=== PATIENT | female | born 1980 | race African-American/Black ===

== ENCOUNTER 2016-11-07 07:24 | Emergency (ER) | payer OTHER ==
[~2016-11-07] VITALS: Ht 152.4 cm; Wt 100.0 kg
[~2016-11-07 07:24] MED LIST: ADVA100A INH; ALBU1.25 NEB; SYMB80AE INH
[2016-11-07 07:26] VITALS: BP 165/94; PULSE 112; RESP 22; TEMP 98.2; O2SAT 95
--- NOTE | 2016-11-07 07:43 | PD ---
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 Patient does have a history of asthma and does use nebulizers at home. She states that she use them however they have not controlled her wheezing. She denies any chest pain chest pressure. Patient also noted that there is some blood that was leaking around her drainage tube from her thyroidectomy. She states she was not sure of this was normal and not. There is no redness or pus. She denies any fevers. PFSH Past Medical History Asthma: Yes Diminished Hearing: No Respiratory: Yes Integumentary: Yes (HIDRANITIS SUPPURATIVA) Myocardial Infarction: Yes Thyroid Disease: Yes (GOITER) : 2 Para: 1 : 1 Past Surgical History Section: Yes (2000) Other Surgery: Yes (CYSTS REMOVED AXILLA) Social History Alcohol Use: No Tobacco Use: No Substance Use: No Allergies-Medications (Allergen,Severity, Reaction): Coded Allergies: No Known Allergies (Verified , 08/14/16) Reported Meds & Prescriptions Reported Meds & Active Scripts Active Lortab (Hydrocodone-Acetaminophen) 7.5-325 Mg Tab 1 Tab PO Q6H PRN Medrol Dosepak (Methylprednisolone) 4 Mg Dspk 4 Mg PO DIRECTED Per Pharmacist direction Reported Advair Diskus Inh (Fluticasone-Salmeterol Inh) 100-50 Mcg/Blist Aer 1 Puff INH BID Rinse mouth after use. Symbicort Inh (Budesonide/Formoterol Fumarate) 80-4.5 Mcg/Act Aero 2 Puff INH Q12HR Albuterol Neb (Albuterol Sulfate) 1.25 Mg/3 Ml Neb 1.25 Mg NEB Q4HR NEB PRN Review of Systems Except as stated in HPI: all other systems reviewed are Neg General / Constitutional: No: Fever, Chills HENT: Positive: Other (slight serious sanguinous drainage from the drain tube from her thyroidectomy's surgical site.), No: Headaches, Lightheadedness Respiratory: Positive: Shortness of Breath, Wheezing Gastrointestinal: No: Nausea, Vomiting, Abdominal Pain Physical Exam Narrative GENERAL: Well-developed well-nourished female in no acute respiratory distress. She does have audible wheezes noted but is breathing comfortable. SKIN: Warm and dry. HEAD: Atraumatic. Normocephalic. EYES: No scleral icterus. No injection or drainage. ENT: No nasal bleeding or discharge. Mucous membranes pink and moist. NECK: Trachea midline. Supple. There is a suture line across her neck, it appears to be clean dry and intact there is no redness or drainage noted. The patient does have a drainage tube in the inferior portion of her neck. There is no active drainage around the tube. There is blood noted in the bulb and to blinding. CARDIOVASCULAR: Regular rate and rhythm. No murmur appreciated. RESPIRATORY: Bilateral expiratory wheezes. No Rales appreciated. MUSCULOSKELETAL: No obvious deformities. No clubbing. No cyanosis. No edema. NEUROLOGICAL: Awake and alert. No obvious cranial nerve deficits. Data Data Last Documented VS Vital Signs Date Time Temp Pulse Resp B/P Pulse Ox O2 Delivery O2 Flow Rate FiO2 11/07/16 09:30 112 22 99 11/07/16 07:41 Nasal Cannula 2 11/07/16 07:26 98.2 Orders Complete Blood Count With Diff (11/07/16 07:38) Basic Metabolic Panel (Bmp) (11/07/16 07:38) Iv Access Insert/Monitor (11/07/16 07:38) Ecg Monitoring (11/07/16 07:38) Oximetry (11/07/16 07:38) Oxygen Administration (11/07/16 07:38) Sodium Chloride 0.9% Flush (Ns Flush) (11/07/16 07:45) Methylprednisolone So Succ Inj (Solumedr (11/07/16 07:45) Albuterol-Ipratropium Neb (Duoneb Neb) (11/07/16 07:45) Albuterol Neb (Albuterol Neb) (11/07/16 07:45) Protein Corrected Calcium(Pcc) (11/07/16 07:50) Albuterol Neb (Albuterol Neb) (11/07/16 09:15) Labs Laboratory Tests Test 11/07/16 07:50 White Blood Count 10.7 TH/MM3 Red Blood Count 3.33 MIL/MM3 Hemoglobin 8.9 GM/DL Hematocrit 27.4 % Mean Corpuscular Volume 82.1 FL Mean Corpuscular Hemoglobin 26.6 PG Mean Corpuscular Hemoglobin 32.3 % Concent Red Cell Distribution Width 15.1 % Platelet Count 228 TH/MM3 Mean Platelet Volume 8.6 FL Neutrophils (%) (Auto) 70.5 % Lymphocytes (%) (Auto) 13.4 % Monocytes (%) (Auto) 13.8 % Eosinophils (%) (Auto) 1.9 % Basophils (%) (Auto) 0.4 % Neutrophils # (Auto) 7.5 TH/MM3 Lymphocytes # (Auto) 1.4 TH/MM3 Monocytes # (Auto) 1.5 TH/MM3 Eosinophils # (Auto) 0.2 TH/MM3 Basophils # (Auto) 0.0 TH/MM3 CBC Comment DIFF FINAL Differential Comment Sodium Level 139 MEQ/L Potassium Level 3.3 MEQ/L Chloride Level 101 MEQ/L Carbon Dioxide Level 26.7 MEQ/L Anion Gap 11 MEQ/L Blood Urea Nitrogen 10 MG/DL Creatinine 0.65 MG/DL Estimat Glomerular Filtration 123 ML/MIN Rate Random Glucose 81 MG/DL Calcium Level 6.2 MG/DL Protein Corrected Calcium 5.9 MG/DL Total Protein 7.9 GM/DL MDM Medical Decision Making Medical Screen Exam Complete: Yes Emergency Medical Condition: Yes Differential Diagnosis Asthma exacerbation versus pneumonia versus bronchitis Narrative Course 36-year-old female presents with complaints of shortness of breath and wheezing. Patient has known history of asthma/reactive airway disease. She status post tonsillectomy, adenoidectomy, thyroidectomy 2 days prior. The patient has a surgical drain in place. She noted some serous sanguinous drainage around the tube site. It is not actively draining now. The bulb suction tube appears to be intact and is appropriately draining. The patient has no Rales. There is no fever. She has been given Solu-Medrol, 125 mg I V times one dose. She's also been given 1 DuoNeb and 3 albuterol nebulizers. She feels much improved. We'll discharge her with a prescription for Medrol Dosepak. She is instructed to use her inhalers at home. She requested that I write her prescription for something less strong than the OxyContin that she had received at [facility]. I informed her I would write for Lortab 7.5. I've written for a total number of 20. Diagnosis Primary Impression: Asthma exacerbation Additional Impression: Medication refill Med/Other Pt SpecificInfo: Prescription(s) given Scripts Hydrocodone-Acetaminophen (Lortab)7.5-325 Mg Tab1 Tab PO Q6H PRN (PAIN) #20 TAB Ref 0 Prov:Ras Rosado MD 11/07/16 Methylprednisolone Dosepak (Medrol Dosepak)4 Mg Dspk4 Mg PO DIRECTED #1 DSPK Ref 0 Per Pharmacist direction Prov:Ras Rosado MD 11/07/16 Disposition: DISCHARGE HOME Condition: Stable Ras Rosado MD Nov 07, 2016 07:43 Ras Rosado MD Nov 07, 2016 07:43
[2016-11-07] MEDS ORDERED: RESP: ALBUTEROL 2.5 MG/IPRATROPIUM 0.5 MG NEB (SCH) INH ONE (07:45)
[2016-11-07] MEDS ORDERED: methylPREDNISolone SOD SUCC 125 MG/2 ML VIAL IVP ONE (07:45)
[2016-11-07] MEDS ORDERED: SODIUM CHLORIDE 0.9% FLUSH 5 ML FLUSH IVF PRN (07:45)
[2016-11-07] MEDS: RESP: ALBUTEROL 2.5 MG/3 ML NEB (SCH) INH (07:50)
[2016-11-07 08:03] LABS: AUTOMATED NEUTROPHIL # 7.5 TH/MM3 (1.8-7.7); BASOPHIL % 0.4 % (0.0-2.0); EOSINOPHIL # 0.2 TH/MM3 (0-0.4); EOSINOPHIL % 1.9 % (0.0-4.0); HEMATOCRIT 27.4 % (35.0-46.0); HEMO FLAGS DIFF FINAL; LYMPH % 13.4 % (9.0-44.0); LYMPHOCYTE # 1.4 TH/MM3 (1.0-4.8); MEAN CELL VOLUME 82.1 FL (80.0-100.0); MEAN CORPUSCULAR HEMOGLOBIN 26.6 PG (27.0-34.0); MEAN CORPUSCULAR HGB CONC 32.3 % (32.0-36.0); MONO % 13.8 % (0.0-8.0); NEUT % 70.5 % (16.0-70.0); PLATELET COUNT 228 TH/MM3 (150-450); RED BLOOD COUNT 3.33 MIL/MM3 (4.00-5.30); RED CELL DISTRIBUTION WIDTH 15.1 % (11.6-17.2); WHITE BLOOD COUNT 10.7 TH/MM3 (4.0-11.0)
[2016-11-07 08:21] LABS: BICARBONATE 26.7 MEQ/L (21.0-32.0); POTASSIUM 3.3 MEQ/L (3.5-5.1)
[2016-11-07 08:39] LABS: CALCIUM-PROTEIN CORRECTED 5.9 MG/DL (8.5-10.1)
[2016-11-07] MEDS ORDERED: HYDR-3534 PO (09:08)
[2016-11-07] MEDS ORDERED: MEDR4PAK PO (09:08)
[2016-11-07] MEDS ORDERED: RESP: ALBUTEROL 2.5 MG/3 ML NEB (SCH) NEB ONE (09:15)
[2016-11-07 09:30] VITALS: PULSE 112; RESP 22; O2SAT 99
[2016-11-07 09:56] VITALS: BP 161/99; TEMP 98.1
== END 2016-11-07 09:58 | disposition home or self-care (01) ==
LOC: NEPC 07:24
DX: J45.901 Unspecified asthma with (acute) exacerbation (principal); Z76.0 Encounter for issue of repeat prescription
CPT/HCPCS: 80048; 84155; 85025; 94640; 94664; 96374; 99283; J2930; J7613

== ENCOUNTER 2017-01-18 07:40 | Emergency (ER) | payer OTHER ==
[~2017-01-18] VITALS: Ht 167.6 cm; Wt 112.0 kg
[~2017-01-18 07:40] MED LIST changes: +HYDR-3534 PO; +MEDR4PAK PO
[2017-01-18 07:43] VITALS: BP 158/108; PULSE 101; RESP 16; TEMP 98.5; O2SAT 99
[2017-01-18] MEDS ORDERED: LEVO50TA4 PO (07:55)
[2017-01-18] MEDS ORDERED: DEXAMETHASONE SOD PHOS 20 MG/5 ML VIAL IM ONE (08:00)
[2017-01-18] MEDS ORDERED: DIAZEPAM 10 MG TAB PO ONE (08:00)
[2017-01-18] MEDS ORDERED: KETOROLAC TROMETHAMINE 60 MG/2 ML (IM) VIAL IM ONE (08:00)
[2017-01-18] MEDS ORDERED: HYDR-3533 PO (08:08)
[2017-01-18] MEDS ORDERED: DIAZ5 PO (08:08)
[2017-01-18] MEDS ORDERED: MEDR4PAK PO (08:08)
--- NOTE | 2017-01-18 08:09 | PD ---
HPI Chief Complaint: Back/ Neck Pain or Injury Time Seen by Provider: 07:49 Travel History International Travel<30 days: No Contact w/Intl Traveler<30days: No Traveled to known affect area: No History of Present Illness HPI Patient is a 36-year-old female who presents to emergency room with complaints of left-sided cervical muscle strain, patient reports that she woke up from sleep 2 days ago and reports that she had difficulties with moving her neck. Patient reports that her neck feels tight with ROM. Patient reports that she tried buying a Tempur-Pedic pillow with no relief of symptoms. Patient reports that she recently had a thyroidectomy as well as a goiter removal and tonsils and adenoids removal in October, she did call her surgeon who told her that she will still be sore to her throat. Patient with no obvious throat pain, patient with a majority of her pain to her left sided paraspinal muscles. PFSH Past Medical History Asthma: Yes Cardiovascular Problems: No (htn was elevated last month but not on any meds) Diminished Hearing: No Respiratory: Yes (asthma) Integumentary: Yes (HIDRANITIS SUPPURATIVA) Myocardial Infarction: Yes Thyroid Disease: Yes (GOITER) Tetanus Vaccination: > 5 Years Influenza Vaccination: Yes ?: Not LMP: 12/19/16 : 2 Para: 1 : 1 Past Surgical History Section: Yes (2000) Tonsillectomy: Yes (WITH ADNOIDS, thyroidectomy, gourter removal) Other Surgery: Yes (CYSTS REMOVED AXILLA AND THYROIDECTOMY) Social History Alcohol Use: No Tobacco Use: No Substance Use: No Allergies-Medications (Allergen,Severity, Reaction): Coded Allergies: No Known Allergies (Verified , 01/18/17) Reported Meds & Prescriptions Reported Meds & Active Scripts Active Reported Levothyroxine (Levothyroxine Sodium) 50 Mcg Tab 50 Mcg PO DAILY Advair Diskus Inh (Fluticasone-Salmeterol Inh) 100-50 Mcg/Blist Aer 1 Puff INH BID Rinse mouth after use. Symbicort Inh (Budesonide/Formoterol Fumarate) 80-4.5 Mcg/Act Aero 2 Puff INH Q12HR Albuterol Neb (Albuterol Sulfate) 1.25 Mg/3 Ml Neb 1.25 Mg NEB Q4HR NEB PRN Review of Systems General / Constitutional: No: Fever Eyes: No: Visual changes HENT: Positive: Neck Stiffness, Neck Pain, No: Headaches Cardiovascular: No: Chest Pain or Discomfort Respiratory: No: Shortness of Breath Gastrointestinal: No: Abdominal Pain Genitourinary: No: Dysuria Musculoskeletal: No: Pain Skin: No Rash Neurologic: No: Weakness Psychiatric: No: Depression Endocrine: No: Polydipsia Hematologic/Lymphatic: No: Easy Bruising Physical Exam Narrative GENERAL: mild distress SKIN: Focused skin assessment warm/dry. HEAD: Atraumatic. Normocephalic. EYES: Pupils equal and round. No scleral icterus. No injection or drainage. ENT: No nasal bleeding or discharge. Mucous membranes pink and moist. NECK: Trachea midline. No JVD. Patient with left sided cervical paraspinal muscles, patient with pain with ROM of neck to the left, no swelling or erythema or signs of infection CARDIOVASCULAR: Regular rate and rhythm. No murmur appreciated. RESPIRATORY: No accessory muscle use. Clear to auscultation. Breath sounds equal bilaterally. GASTROINTESTINAL: Abdomen soft, non-tender, nondistended. Hepatic and splenic margins not palpable. MUSCULOSKELETAL: No obvious deformities. No clubbing. No cyanosis. No edema. NEUROLOGICAL: Awake and alert. Normal speech. PSYCHIATRIC: Appropriate mood and affect; insight and judgment normal. Data Data Last Documented VS Vital Signs Date Time Temp Pulse Resp B/P Pulse Ox O2 Delivery O2 Flow Rate FiO2 01/18/17 07:43 98.5 101 16 158/108 99 Orders Ketorolac Inj (Toradol Inj) (01/18/17 08:00) Dexamethasone Inj (Decadron Inj) (01/18/17 08:00) Diazepam (Valium) (01/18/17 08:15) [facility] Medical Decision Making Medical Screen Exam Complete: Yes Emergency Medical Condition: Yes Interpretation(s) Vital Signs Date Time Temp Pulse Resp B/P Pulse Ox O2 Delivery O2 Flow Rate FiO2 01/18/17 07:43 98.5 101 16 158/108 99 Differential Diagnosis cervical muscle strain, torticollis Narrative Course Patient is a 36-year-old female who presents to emergency room with complaints of left-sided cervical muscle strain, patient reports that she woke up from sleep 2 days ago and reports that she had difficulties with moving her neck. Patient reports that her neck feels tight with ROM. Patient reports that she tried buying a Tempur-Pedic pillow with no relief of symptoms. Patient reports that she recently had a thyroidectomy as well as a goiter removal and tonsils and adenoids removal in October, she did call her surgeon who told her that she will still be sore to her throat. Patient with no obvious throat pain, patient with a majority of her pain to her left sided paraspinal muscles. Plan to give dexamethasone, toradol and valium as pt's symptoms are most likely all musculoskeletal. Patient with what appears to be torticollis and paraspinal cervical muscle spasm to the left side of her neck.. Patient will follow up with her surgeon and primary care doctor as scheduled. Diagnosis Primary Impression: Cervical paraspinal muscle spasm Additional Impression: Torticollis Patient Instructions: General Instructions Additional Instructions: Please follow-up with your primary care doctor as well as your surgeon as scheduled Do not drive while taking narcotic pain medications Return to emergency room if symptoms worsen or progress Med/Other Pt SpecificInfo: Prescription(s) given Scripts Hydrocodone-Acetaminophen (Lortab)5-325 Mg Tab1 Tab PO Q6H PRN (PAIN) #12 TAB Ref 0 Prov:Yelitza Barlow DO 01/18/17 Methylprednisolone Dosepak (Medrol Dosepak)4 Mg Dspk4 Mg PO DIRECTED #1 DSPK Ref 0 Per Pharmacist direction Prov:Yelitza Barlow DO 01/18/17 Diazepam (Valium)5 Mg Tab5 Mg PO BID PRN (MUSCLE SPASM) #12 TAB Ref 0 Prov:Yelitza Barlow DO 01/18/17 Disposition: 01 DISCHARGE HOME Condition: Stable Yelitza Barlow DO January 18, 2017 08:09
[2017-01-18] MEDS ORDERED: DIAZEPAM 5 MG TAB PO ONE (08:15)
== END 2017-01-18 08:25 | disposition home or self-care (01) ==
LOC: PHED 07:40
DX: M62.838 Other muscle spasm (principal); M43.6 Torticollis; J45.909 Unspecified asthma, uncomplicated; I25.2 Old myocardial infarction; I10 Essential (primary) hypertension; Z79.899 Other long term (current) drug therapy; Z79.51 Long term (current) use of inhaled steroids; Z79.52 Long term (current) use of systemic steroids
CPT/HCPCS: 96372; 99283; J1100; J1885

== ENCOUNTER 2017-07-11 10:06 | Emergency (ER) | payer OTHER ==
[~2017-07-11] VITALS: Ht 152.4 cm; Wt 110.0 kg
[~2017-07-11 10:06] MED LIST changes: +DIAZ5 PO; +HYDR-3533 PO; -HYDR-3534 PO; +LEVO50TA4 PO
[2017-07-11 10:07] VITALS: BP 152/97; PULSE 109; RESP 20; TEMP 98.9; O2SAT 95
[2017-07-11] MEDS ORDERED: KETOROLAC TROMETHAMINE 30 MG/ML (IVP) VIAL IV PUSH ONE (10:45)
--- NOTE | 2017-07-11 10:47 | PD ---
HPI Chief Complaint: Chest Pain Time Seen by Provider: 10:20 Travel History International Travel<30 days: No Contact w/Intl Traveler<30days: No Traveled to known affect area: No History of Present Illness HPI 37-year-old female complains of chest pain. Patient states the pain started last night. Patient states the pain is sharp pain started left chest area with radiation to the left shoulder and left arm. Patient denies any fever chills. Patient denies any coughing congestion. Patient states the pain is worse with deep breathing. Patient states that the pain is worse with movement of the left shoulder joint. Patient denies any shortness of breath. Patient has history of asthma. Patient has history hypothyroidism. Patient denies history hypertension, diabetes, hyperlipidemia. Patient is a nonsmoker. Patient denies family history of heart disease. Patient states that her blood pressure was elevated at last visit with her physician. Patient is not on any blood pressure medication. On a scale of 1-10 the pain is an 8. PFSH Past Medical History Asthma: Yes Diminished Hearing: No Respiratory: Yes (asthma) Integumentary: Yes (HIDRANITIS SUPPURATIVA) Myocardial Infarction: Yes Thyroid Disease: Yes (GOITER) Tetanus Vaccination: < 5 Years ?: Not LMP: 5 weeks ago : 2 Para: 1 : 1 Past Surgical History Section: Yes (2000) Tonsillectomy: Yes (WITH ADNOIDS, thyroidectomy, gourter removal) Other Surgery: Yes (CYSTS REMOVED AXILLA AND THYROIDECTOMY) Social History Alcohol Use: No Tobacco Use: No Substance Use: No Allergies-Medications (Allergen,Severity, Reaction): Coded Allergies: No Known Allergies (Verified Adverse Reaction, Unknown, 07/11/17) Reported Meds & Prescriptions Reported Meds & Active Scripts Active Reported Levothyroxine (Levothyroxine Sodium) 50 Mcg Tab 200 Mcg PO DAILY Advair Diskus Inh (Fluticasone-Salmeterol Inh) 100-50 Mcg/Blist Aer 1 Puff INH BID Rinse mouth after use. Symbicort Inh (Budesonide/Formoterol Fumarate) 80-4.5 Mcg/Act Aero 2 Puff INH Q12HR Albuterol Neb (Albuterol Sulfate) 1.25 Mg/3 Ml Neb 1.25 Mg NEB Q4HR NEB PRN Review of Systems General / Constitutional: No: Fever Eyes: No: Visual changes HENT: No: Headaches Cardiovascular: Positive: Chest Pain or Discomfort Respiratory: No: Shortness of Breath Gastrointestinal: No: Abdominal Pain Genitourinary: No: Dysuria Musculoskeletal: No: Pain Skin: No Rash Neurologic: No: Weakness Psychiatric: No: Depression Endocrine: No: Polydipsia Hematologic/Lymphatic: No: Easy Bruising Physical Exam Narrative GENERAL: Well-nourished, well-developed patient. SKIN: Focused skin assessment warm/dry. HEAD: Normocephalic. EYES: No scleral icterus. No injection or drainage. NECK: Supple, trachea midline. No JVD or lymphadenopathy. CARDIOVASCULAR: Regular rate and rhythm without murmurs, gallops, or rubs. RESPIRATORY: Breath sounds equal bilaterally. No accessory muscle use. GASTROINTESTINAL: Abdomen soft, non-tender, nondistended. MUSCULOSKELETAL: No cyanosis, or edema. Patient had reproducible left upper chest tenderness and anterior left shoulder tenderness. Full range of motion of the shoulder. No crepitus no deformity noted of the chest wall. BACK: Nontender without obvious deformity. No CVA tenderness. Neurologic exam normal. Data Data Last Documented VS Vital Signs Date Time Temp Pulse Resp B/P (MAP) Pulse Ox O2 Delivery O2 Flow Rate FiO2 07/11/17 11:31 96 18 99 Room Air 07/11/17 10:07 98.9 Orders Orders Electrocardiogram (07/11/17 10:43) Complete Blood Count With Diff (07/11/17 10:43) Comprehensive Metabolic Panel (07/11/17 10:43) Creatine Kinase (Cpk) (07/11/17 10:43) Troponin I (07/11/17 10:43) Prothrombin Time / Inr (Pt) (07/11/17 10:43) Act Partial Throm Time (Ptt) (07/11/17 10:43) Chest, Single Ap (07/11/17 10:43) Iv Access Insert/Monitor (07/11/17 10:43) Ecg Monitoring (07/11/17 10:43) Oximetry (07/11/17 10:43) Ketorolac Inj (Toradol Inj) (07/11/17 10:45) CKMB (07/11/17 10:48) CKMB% (07/11/17 10:48) Labs Laboratory Tests Test 07/11/17 10:48 White Blood Count 7.2 TH/MM3 Red Blood Count 3.87 MIL/MM3 Hemoglobin 9.9 GM/DL Hematocrit 31.1 % Mean Corpuscular Volume 80.3 FL Mean Corpuscular Hemoglobin 25.7 PG Mean Corpuscular Hemoglobin Concent 31.9 % Red Cell Distribution Width 17.2 % Platelet Count 328 TH/MM3 Mean Platelet Volume 8.6 FL Neutrophils (%) (Auto) 63.8 % Lymphocytes (%) (Auto) 23.0 % Monocytes (%) (Auto) 11.8 % Eosinophils (%) (Auto) 0.6 % Basophils (%) (Auto) 0.8 % Neutrophils # (Auto) 4.6 TH/MM3 Lymphocytes # (Auto) 1.6 TH/MM3 Monocytes # (Auto) 0.8 TH/MM3 Eosinophils # (Auto) 0.0 TH/MM3 Basophils # (Auto) 0.1 TH/MM3 CBC Comment DIFF FINAL Differential Comment Prothrombin Time 12.0 SEC Prothromb Time International Ratio 1.1 RATIO Activated Partial Thromboplast Time 24.8 SEC Blood Urea Nitrogen 17 MG/DL Creatinine 0.89 MG/DL Random Glucose 97 MG/DL Total Protein 9.3 GM/DL Albumin 3.6 GM/DL Calcium Level 7.9 MG/DL Alkaline Phosphatase 55 U/L Aspartate Amino Transf (AST/SGOT) 21 U/L Alanine Aminotransferase (ALT/SGPT) 20 U/L Total Bilirubin 0.8 MG/DL Sodium Level 138 MEQ/L Potassium Level 3.5 MEQ/L Chloride Level 103 MEQ/L Carbon Dioxide Level 27.1 MEQ/L Anion Gap 8 MEQ/L Estimat Glomerular Filtration Rate 85 ML/MIN Total Creatine Kinase 394 U/L Creatine Kinase MB 1.5 NG/ML Creatine Kinase MB % 0.4 % Troponin I LESS THAN 0.02 NG/ML MDM Medical Decision Making Medical Screen Exam Complete: Yes Emergency Medical Condition: Yes Interpretation(s) Last Impressions Chest X-Ray 07/11/17 1043 Signed Impressions: Service Date/Time: Tuesday, July 11, 2017 11:09 - CONCLUSION: The lungs are clear. Jarrett Giraldo MD 12:29 PM. CBC WBC 7.2. Hemoglobin 9.9 hematocrit 31.1. Normal differential. CMP within normal limit. Cardiac enzymes are normal. Differential Diagnosis Differential diagnosis including musculoskeletal, angina, CT, PE, pneumothorax. Narrative Course 37-year-old female with anterior left chest pain and left shoulder pain. Toradol 30 mg IV. Diagnosis Primary Impression: Atypical chest pain Patient Instructions: General Instructions Additional Instructions: Take medications as needed for pain. Follow-up with personal physician. Return immediately if increasing chest pain or shortness of breath. Med/Other Pt SpecificInfo: Prescription(s) given Scripts Methocarbamol (Robaxin) 750 Mg Tab 750 MG PO QID for Muscle Spasm, #40 TAB 0 Refills Prov: Alex Villarreal MD 07/11/17 Meloxicam (Mobic) 15 Mg Tab 15 MG PO DAILY for Pain, #20 TAB 0 Refills Prov: Alex Villarreal MD 07/11/17 Disposition: 01 DISCHARGE HOME Condition: Stable Alex Villarreal MD Jul 11, 2017 10:47
[2017-07-11 11:16] LABS: AUTOMATED NEUTROPHIL # 4.6 TH/MM3 (1.8-7.7); BASOPHIL # 0.1 TH/MM3 (0-0.2); BASOPHIL % 0.8 % (0.0-2.0); EOSINOPHIL % 0.6 % (0.0-4.0); HEMATOCRIT 31.1 % (35.0-46.0); HEMO FLAGS DIFF FINAL; LYMPHOCYTE # 1.6 TH/MM3 (1.0-4.8); MEAN CELL VOLUME 80.3 FL (80.0-100.0); MEAN CORPUSCULAR HEMOGLOBIN 25.7 PG (27.0-34.0); MEAN CORPUSCULAR HGB CONC 31.9 % (32.0-36.0); MONO % 11.8 % (0.0-8.0); NEUT % 63.8 % (16.0-70.0); PLATELET COUNT 328 TH/MM3 (150-450); RED BLOOD COUNT 3.87 MIL/MM3 (4.00-5.30); RED CELL DISTRIBUTION WIDTH 17.2 % (11.6-17.2); WHITE BLOOD COUNT 7.2 TH/MM3 (4.0-11.0)
--- NOTE | 2017-07-11 11:18 | RADRPT ---
EXAM DATE/TIME: 07/11/2017 11:09 [facility] COMPARISON: CHEST SINGLE AP, February 22, 2016, 10:45. INDICATIONS : Chest pain. Patient complains of chest pain and shortness of breath. MEDICAL HISTORY : Asthma. SURGICAL HISTORY : None. ENCOUNTER: Initial ACUITY: 1 day PAIN SCORE: 7/10 LOCATION: Bilateral chest FINDINGS: A single view of the chest demonstrates the lungs to be symmetrically aerated without evidence of mas s, infiltrate or effusion. The cardiomediastinal contours are unremarkable. Osseous structures are intact. CONCLUSION: The lungs are clear. Jarrett Giraldo MD on July 11, 2017 at 11:16 Board Certified Radiologist. This report was verified electronically.
[2017-07-11 11:27] LABS: APTT (PATIENT) 24.8 SEC (24.3-30.1); INTERNATIONAL NORMALIZED RATIO 1.1 RATIO
[2017-07-11 11:31] VITALS: PULSE 96; RESP 18; O2SAT 99
[2017-07-11 11:34] LABS: ALT (GPT) 20 U/L (10-53); ANION GAP 8 MEQ/L (5-15); AST (GOT) 21 U/L (15-37); BICARBONATE 27.1 MEQ/L (21.0-32.0); BLOOD UREA NITROGEN 17 MG/DL (7-18); CHLORIDE 103 MEQ/L (98-107); GLOMERULAR FILTRATION RATE 85 ML/MIN (>89); POTASSIUM 3.5 MEQ/L (3.5-5.1); SODIUM (NA) 138 MEQ/L (136-145)
[2017-07-11 11:39] LABS: ALKALINE PHOSPHATASE 55 U/L (45-117); CREATINE KINASE 394 U/L (26-192); TOTAL BILIRUBIN ADULT 0.8 MG/DL (0.2-1.0)
[2017-07-11 11:51] LABS: CKMB 1.5 NG/ML (0.5-3.6)
[2017-07-11] MEDS ORDERED: ROBA750T PO (12:35)
[2017-07-11] MEDS ORDERED: MOBI15TA PO (12:35)
[2017-07-11 14:24] VITALS: BP 116/82
--- NOTE | 2017-07-11 18:08 | EKG ---
Date Performed: 07/11/2017 Time Performed: 10:25:54 PTAGE: 37 years EKG: Sinus rhythm NONSPECIFIC T-WAVE ABNORMALITY BORDERLINE ECG Compared to prior tracing no significant change PREVIOUS TRACING : 02/22/2016 11.19 DOCTOR: Radha Tesfaye Interpretating Date/Time 07/11/2017 18:06:58
== END 2017-07-11 14:43 | disposition home or self-care (01) ==
LOC: NEPE 10:06
DX: R07.89 Other chest pain (principal); J45.909 Unspecified asthma, uncomplicated; E03.9 Hypothyroidism, unspecified; R94.31 Abnormal electrocardiogram [ECG] [EKG]
CPT/HCPCS: 71010; 80053; 82550; 82552; 84484; 85025; 85610; 85730; 93005; 96374; 99285; J1885

== ENCOUNTER 2017-07-12 22:37 | Emergency (ER) | payer OTHER ==
[~2017-07-12] VITALS: Ht 152.4 cm; Wt 105.0 kg
[~2017-07-12 22:37] MED LIST changes: -DIAZ5 PO; -HYDR-3533 PO; -MEDR4PAK PO; +MOBI15TA PO; +ROBA750T PO
[2017-07-12 22:38] VITALS: BP 160/100; PULSE 98; RESP 16; TEMP 98.7; O2SAT 97
[2017-07-12] MEDS ORDERED: KETOROLAC TROMETHAMINE 30 MG/ML (IVP) VIAL IV PUSH ONE (23:15)
[2017-07-12 23:20] VITALS: RESP 20; O2SAT 99
--- NOTE | 2017-07-12 23:21 | PD ---
HPI Chief Complaint: Chest Pain Time Seen by Provider: 23:16 Travel History International Travel<30 days: No Contact w/Intl Traveler<30days: No Traveled to known affect area: No History of Present Illness HPI 37-year-old female presents to the emergency department for complaint of chest pain. Patient describes discomfort as somewhat sharp in nature and noted some tingling in her left arm. Patient was just seen for same complaint yesterday with evaluation that identified no acute abnormality and was diagnosed with atypical chest pain. Patient was seen by her primary care provider this morning was noted to have elevation of her blood pressure was given a prescription for Motrin. Patient states she took the medication prior to taking a nap and upon awakening noticed that she had discomfort again in the tingling arms and decided return to the emergency for. Patient is status post tonsillectomy adenoidectomy thyroidectomy goiter excision and has chronic swelling of the left lower extremity that has not worsened and has been evaluated recently with a CT and with an ultrasound of the lower extremity without any evidence of acute abnormality or DVT. Patient does not complain of any shortness of breath. Patient's had no referred neck jaw back shoulder or abdominal pain and has noted some tingling in the left arm. Patient denies any neck pain or worsening of arm tingling with range of motion. Patient denies any weakness. Patient's had no headache no visual disturbance no weakness and no ataxia of gait. Patient does not smoke cigarettes and does not take control pills. Last menstrual period was July 03 and normal for her. Patient rates her discomfort 8/10 in intensity. PFSH Past Medical History Narrative Medical Asthma hypothyroidism goiter excision thyroidectomy tonsillectomy adenoidectomy ; no tobacco use: Nursing notes reviewed Asthma: Yes Diminished Hearing: No Respiratory: Yes (asthma) Integumentary: Yes (HIDRANITIS SUPPURATIVA) Myocardial Infarction: Yes Thyroid Disease: Yes (GOITER) Tetanus Vaccination: < 5 Years Influenza Vaccination: No ?: Not LMP: 07/03/2017 : 2 Para: 1 : 1 Past Surgical History Section: Yes (2000) Tonsillectomy: Yes (WITH ADNOIDS, thyroidectomy, gourter removal) Other Surgery: Yes (CYSTS REMOVED AXILLA AND THYROIDECTOMY) Social History Alcohol Use: No Tobacco Use: No Substance Use: No Allergies-Medications (Allergen,Severity, Reaction): Coded Allergies: No Known Allergies (Verified Adverse Reaction, Unknown, 07/11/17) Reported Meds & Prescriptions Reported Meds & Active Scripts Active Robaxin (Methocarbamol) 750 Mg Tab 750 Mg PO QID Mobic (Meloxicam) 15 Mg Tab 15 Mg PO DAILY Reported Levothyroxine (Levothyroxine Sodium) 50 Mcg Tab 200 Mcg PO DAILY Advair Diskus Inh (Fluticasone-Salmeterol Inh) 100-50 Mcg/Blist Aer 1 Puff INH BID Rinse mouth after use. Symbicort Inh (Budesonide/Formoterol Fumarate) 80-4.5 Mcg/Act Aero 2 Puff INH Q12HR Albuterol Neb (Albuterol Sulfate) 1.25 Mg/3 Ml Neb 1.25 Mg NEB Q4HR NEB PRN Review of Systems Except as stated in HPI: all other systems reviewed are Neg General / Constitutional: No: Fever, Chills Eyes: No: Visual changes HENT: No: Headaches, Congestion, Neck Pain Cardiovascular: Positive: Chest Pain or Discomfort, No: Diaphoresis, Syncope Respiratory: No: Cough, Shortness of Breath, Wheezing, Pleuritic Pain Gastrointestinal: No: Nausea, Vomiting, Abdominal Pain Genitourinary: No: Dysuria, Flank Pain Musculoskeletal: No: Myalgias, Arthralgias Skin: No Rash Neurologic: No: Weakness Psychiatric: No: Anxiety Endocrine: No: Heat Intolerance Hematologic/Lymphatic: No: Easy Bruising Physical Exam Narrative GENERAL: Well-developed well-nourished female in no acute distress no respiratory distress SKIN: Warm and dry. HEAD: Normocephalic. EYES: No scleral icterus. No injection or drainage. NECK: Supple, trachea midline. No JVD or lymphadenopathy. CARDIOVASCULAR: Regular rate and rhythm without murmurs, gallops, or rubs. Chest wall: Mild tenderness to direct palpation RESPIRATORY: Breath sounds equal bilaterally. No accessory muscle use. GASTROINTESTINAL: Abdomen soft, non-tender, nondistended. MUSCULOSKELETAL: No cyanosis, chronic left lower leg edema. BACK: Nontender without obvious deformity. No CVA tenderness. Data Data Last Documented VS Vital Signs Date Time Temp Pulse Resp B/P (MAP) Pulse Ox O2 Delivery O2 Flow Rate FiO2 07/13/17 00:59 20 07/12/17 23:20 99 Room Air 07/12/17 22:38 98.7 98 Orders Orders Electrocardiogram (07/12/17 23:15) Basic Metabolic Panel (Bmp) (07/12/17 23:15) Ckmb (Isoenzyme) Profile (07/12/17 23:15) Complete Blood Count With Diff (07/12/17 23:15) Troponin I (07/12/17 23:15) Chest, Single Ap (07/12/17 23:15) Ecg Monitoring (07/12/17 23:15) Iv Access Insert/Monitor (07/12/17 23:15) Oximetry (07/12/17 23:15) D-Dimer (07/12/17 23:15) Ed Urine Pregnancytest Poc (07/12/17 23:15) Ketorolac Inj (Toradol Inj) (07/12/17 23:15) CKMB (07/12/17 23:24) CKMB% (07/12/17 23:24) Ct Pulmonary Angiogram (07/13/17 ) Sodium Chlor 0.9% 1000 Ml Inj (Ns 1000 M (07/13/17 01:00) Iohexol 350 Inj (Omnipaque 350 Inj) (07/13/17 01:24) Ed Discharge Order (07/13/17 02:26) Labs Laboratory Tests Test 07/12/17 23:24 White Blood Count 9.0 TH/MM3 Red Blood Count 3.75 MIL/MM3 Hemoglobin 9.9 GM/DL Hematocrit 29.8 % Mean Corpuscular Volume 79.4 FL Mean Corpuscular Hemoglobin 26.3 PG Mean Corpuscular Hemoglobin Concent 33.1 % Red Cell Distribution Width 16.8 % Platelet Count 323 TH/MM3 Mean Platelet Volume 8.4 FL Neutrophils (%) (Auto) 60.6 % Lymphocytes (%) (Auto) 24.2 % Monocytes (%) (Auto) 13.7 % Eosinophils (%) (Auto) 1.0 % Basophils (%) (Auto) 0.5 % Neutrophils # (Auto) 5.4 TH/MM3 Lymphocytes # (Auto) 2.2 TH/MM3 Monocytes # (Auto) 1.2 TH/MM3 Eosinophils # (Auto) 0.1 TH/MM3 Basophils # (Auto) 0.0 TH/MM3 CBC Comment DIFF FINAL Differential Comment D-Dimer Quantitative (PE/DVT) 0.92 MG/L FEU Blood Urea Nitrogen 21 MG/DL Creatinine 1.33 MG/DL Random Glucose 91 MG/DL Calcium Level 8.1 MG/DL Sodium Level 139 MEQ/L Potassium Level 3.7 MEQ/L Chloride Level 103 MEQ/L Carbon Dioxide Level 27.6 MEQ/L Anion Gap 8 MEQ/L Estimat Glomerular Filtration Rate 54 ML/MIN Total Creatine Kinase 400 U/L Creatine Kinase MB 1.9 NG/ML Creatine Kinase MB % 0.5 % Troponin I LESS THAN 0.02 NG/ML MDM Medical Decision Making Medical Screen Exam Complete: Yes Emergency Medical Condition: Yes Medical Record Reviewed: Yes Interpretation(s) EKG sinus rhythm rate 95 nonspecific T wave changes no acute ST elevation or injury pattern change or ectopy noted Differential Diagnosis Chest pain, atypical chest pain, ACS, OH, PE, costochondritis, pleurisy Narrative 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
[2017-07-12 23:36] LABS: AUTOMATED NEUTROPHIL # 5.4 TH/MM3 (1.8-7.7); BASOPHIL % 0.5 % (0.0-2.0); EOSINOPHIL # 0.1 TH/MM3 (0-0.4); HEMATOCRIT 29.8 % (35.0-46.0); HEMO FLAGS DIFF FINAL; LYMPH % 24.2 % (9.0-44.0); LYMPHOCYTE # 2.2 TH/MM3 (1.0-4.8); MEAN CELL VOLUME 79.4 FL (80.0-100.0); MEAN CORPUSCULAR HEMOGLOBIN 26.3 PG (27.0-34.0); MEAN CORPUSCULAR HGB CONC 33.1 % (32.0-36.0); MONO % 13.7 % (0.0-8.0); NEUT % 60.6 % (16.0-70.0); PLATELET COUNT 323 TH/MM3 (150-450); RED BLOOD COUNT 3.75 MIL/MM3 (4.00-5.30); RED CELL DISTRIBUTION WIDTH 16.8 % (11.6-17.2)
[2017-07-13 00:04] LABS: ANION GAP 8 MEQ/L (5-15); BICARBONATE 27.6 MEQ/L (21.0-32.0); BLOOD UREA NITROGEN 21 MG/DL (7-18); CHLORIDE 103 MEQ/L (98-107); GLOMERULAR FILTRATION RATE 54 ML/MIN (>89); POTASSIUM 3.7 MEQ/L (3.5-5.1); SODIUM (NA) 139 MEQ/L (136-145)
[2017-07-13 00:07] LABS: CREATINE KINASE 400 U/L (26-192)
[2017-07-13 00:20] LABS: CKMB 1.9 NG/ML (0.5-3.6)
--- NOTE | 2017-07-13 00:29 | RADRPT ---
EXAM DATE/TIME: 07/12/2017 23:55 [facility] COMPARISON: CHEST SINGLE AP, July 11, 2017, 11:09. INDICATIONS : Chest pain. MEDICAL HISTORY : Asthma SURGICAL HISTORY : None. ENCOUNTER: Subsequent ACUITY: 3 days PAIN SCORE: 7/10 LOCATION: Bilateral chest FINDINGS: A single view of the chest demonstrates the lungs to be symmetrically aerated without evidence of mas s, infiltrate or effusion. The cardiomediastinal contours are unremarkable. Osseous structures are intact. CONCLUSION: No acute disease. Low Dougherty MD on July 13, 2017 at 0:27 Board Certified Radiologist. This report was verified electronically.
[2017-07-13] MEDS ORDERED: SODIUM CHLOR 0.9% 1000 ML INJ 1,000 ML IV ONE (01:00)
[2017-07-13] MEDS ORDERED: IOHEXOL 350 MG/ML 10 ML VIAL (for RAD DIAG) IVCONTRAST ONE (01:24)
--- NOTE | 2017-07-13 01:47 | RADRPT ---
EXAM DATE/TIME: 07/13/2017 01:15 [facility] COMPARISON: No previous studies available for comparison. INDICATIONS : Chest pain and elevated d-dimer; rule out pulmonary embolus. IV CONTRAST: 80 cc Omnipaque 350 (iohexol) IV RADIATION DOSE: 23.66 CTDIvol (mGy) MEDICAL HISTORY : Hypertension. Myocardial infarction. SURGICAL HISTORY : None. ENCOUNTER: Initial ACUITY: 3 days PAIN SCALE: 5/10 LOCATION: chest TECHNIQUE: Volumetric scanning of the chest was performed using a pulmonary embolism protocol MIP images were re constructed. Using automated exposure control and adjustment of the mA and/or kV according to patien t size, radiation dose was kept as low as reasonably achievable to obtain optimal diagnostic quality images. DICOM format image data is available electronically for review and comparison. Follow-up recommendations for detected pulmonary nodules are based at a minimum on nodule size and pa tient risk factors according to Fleischner Society Guidelines. FINDINGS: PULMONARY ARTERIES: No filling defects are seen in the pulmonary arteries through the segmental level. LUNGS: There is no consolidation or pneumothorax . No concerning pulmonary nodule is visualized. PLEURAE: There is no pleural thickening or pleural effusion. MEDIASTINUM: There is good visualization of the great vessels of the middle mediastinum. No evidence of mediastin al or hilar adenopathy/mass. Small hiatal hernia MUSCULOSKELETAL: Within normal limits for patient age. MISCELLANEOUS: The visualized upper abdominal organs demonstrate no acute abnormality. CONCLUSION: No evidence of pulmonary embolism Low Dougherty MD on July 13, 2017 at 1:44 Board Certified Radiologist. This report was verified electronically.
[2017-07-13 03:00] VITALS: BP 140/70; PULSE 89; RESP 18; O2SAT 98
--- NOTE | 2017-07-13 13:29 | EKG ---
Date Performed: 07/12/2017 Time Performed: 23:07:57 PTAGE: 37 years EKG: Sinus rhythm NONSPECIFIC T-WAVE ABNORMALITY BORDERLINE ECG Compared to prior tracing no significant change PREVIOUS TRACING DOCTOR: Vitaliy Claros Interpretating Date/Time 07/13/2017 13:26:29
== END 2017-07-13 03:08 | disposition home or self-care (01) ==
LOC: NEPC 22:37
DX: R07.89 Other chest pain (principal); N28.9 Disorder of kidney and ureter, unspecified; R20.2 Paresthesia of skin; R94.31 Abnormal electrocardiogram [ECG] [EKG]; J45.909 Unspecified asthma, uncomplicated; E03.9 Hypothyroidism, unspecified; E04.9 Nontoxic goiter, unspecified; I25.2 Old myocardial infarction; Z79.52 Long term (current) use of systemic steroids
CPT/HCPCS: 71010; 71275; 80048; 82550; 82552; 84484; 84703; 85025; 85379; 93005; 96361; 96374; 99285; J1885; J7030; Q9967